=== PATIENT | female | born 1935 | race Caucasian/White ===

== ENCOUNTER 2016-11-11 12:41 | Emergency (ER) | payer OTHER ==
[~2016-11-11] VITALS: Ht 172.7 cm; Wt 61.1 kg
[~2016-11-11 12:41] MED LIST: AMLODIPINE BESYL5 MG PO; ATIVAN0.5 MG PO; BENADRYL25 MG PO; BISACODYL5 MG PO; BISOPROLOL FUMA10 MG PO; DOCUSATE SODIU100 MG PO; DUONEB 2.5-0.5 M3 ML IH; ECOTRIN325 MG PO; FOLIC ACID0.8 MG PO; HYDROCODON-ACE1 EAC7 PO; LEVOTHYROXINE25 MCG PO; LISINOPRIL20 MG PO; LITE COAT ASPI325 M1 PO; LOVENOX40 MG/0.4 SC; METFORMIN HCL1000 MG PO; MEVACOR40 MG PO; NICOTINE PATCH1 EAC1 TD; NORVASC10 MG PO; NOVOLOG PE100 UNITS/ SC; POLYETHYLENE GL17 GM PO; PRAVACHOL80 MG PO; PRINIVIL10 MG PO; PRINIVIL20 MG PO; THERAGRAN1 TABLET PO; VITAMIN B12 100MCG PO; ZOLPIDEM TARTRAT5 MG PO
[2016-11-11 13:45] LABS: HEMATOCRIT 41.2 % (36.0-46.0); MCH 28.4 PG (29.0-34.0); MCHC 33.5 G/DL (30.0-36.0); MCV 84.8 FL (83-99); MEAN PLAT.VOLUME 9.9 uM^3 (9.5-12.4); PLATELET COUNT 158 K/uL (156-360); RBC DIS.WIDTH-CV 15.1 % (11.8-14.6); RBC DIS.WIDTH-SD 46.1 % (39-53); RED BLOOD COUNT 4.86 M/uL (3.80-5.20); WHITE BLOOD COUNT 4.1 K/uL (4.1-10.2)
[2016-11-11 13:56] LABS: CHLORIDE 105 mEq/L (99-109); POTASSIUM 4.6 mEq/L (3.7-5.4); SODIUM 138 mEq/L (136-147)
[2016-11-11 13:58] LABS: GLUCOSE 119 mg/dL (70-99)
[2016-11-11 13:59] LABS: ANION GAP 9 MEQ/L (2-14)
[2016-11-11 14:02] LABS: GFR ESTIMATE (CALCULATED) > 59 mL/min/; UREA NITROGEN (BUN) 15 mg/dL (9-23)
[2016-11-11 15:14] LABS: TOTAL BILIRUBIN 0.7 mg/dL (0.0-1.0)
[2016-11-11 15:15] LABS: ALKALINE PHOSPHATASE 49 IU/L (3-129)
[2016-11-11 15:18] LABS: DIRECT BILIRUBIN 0.3 mg/dL (0.0-0.3)
[2016-11-11 15:34] LABS: ADD MIUA? YES; BILIRUBIN NEGATIVE; BLOOD TRACE; COLOR YELLOW ((YELLOW)); GLUCOSE (STRIP) NEGATIVE; KETONES NEGATIVE; LEUKOCYTES TRACE; NITRITE NEGATIVE; PROTEIN (STRIP) NEGATIVE; SPECIFIC GRAVITY 1.011 (1.000-1.030); UROBILINOGEN 0.2 MG/DL (0.2-1.0)
[2016-11-11 15:47] LABS: BACTERIA RARE; CASTS NONE SEEN /LPF; CRYSTALS NONE SEEN; EPITHELIAL CELLS RARE; MUCUS NONE SEEN; RED BLOOD CELLS RARE /HPF (0-5); UCUL ADDED? NO; WHITE BLOOD CELLS RARE /HPF (0-5)
[2016-11-11] MEDS ORDERED: LISINOPRIL10 MG PO (18:28)
[2016-11-11 19:25] VITALS: BP 176/87
== END 2016-11-11 19:25 | disposition home or self-care (01) ==
LOC: EME 12:41
PROVIDERS: Emergency Medicine; Physician Assistant
DX: I10 Essential (primary) hypertension (principal); E78.5 Hyperlipidemia, unspecified; E11.9 Type 2 diabetes mellitus without complications; Z95.1 Presence of aortocoronary bypass graft; Z95.2 Presence of prosthetic heart valve; Z79.84 Long term (current) use of oral hypoglycemic drugs; Z79.82 Long term (current) use of aspirin; F17.200 Nicotine dependence, unspecified, uncomplicated
CPT/HCPCS: 71020; 80048; 80076; 81003; 84439; 84443; 85027; 93005; 99281; 99284

== ENCOUNTER 2017-11-12 08:43 | Day surgery (SDC) | payer OTHER ==
[~2017-11-12] VITALS: Ht 172.7 cm; Wt 60.4 kg
[~2017-11-12 08:43] MED LIST changes: +LISINOPRIL10 MG PO; +ZESTRIL40 MG PO
[2017-11-12 09:22] VITALS: BP 139/89
[2017-11-12 13:15] VITALS: BP 176/77
[2017-11-12 14:01] VITALS: BP 156/69
== END 2017-11-12 14:15 | disposition home or self-care (01) ==
LOC: SDC 08:43
PROVIDERS: Ophthalmology
DX: H33.42 Traction detachment of retina, left eye (principal); E11.311 Type 2 diabetes mellitus with unspecified diabetic retinopathy with macular edema; E03.9 Hypothyroidism, unspecified; I10 Essential (primary) hypertension; I25.10 Atherosclerotic heart disease of native coronary artery without angina pectoris; Z79.82 Long term (current) use of aspirin; Z95.1 Presence of aortocoronary bypass graft; Z79.84 Long term (current) use of oral hypoglycemic drugs; F17.200 Nicotine dependence, unspecified, uncomplicated
CPT/HCPCS: 82948; J2250; J3010; J3300